=== PATIENT | female | born 1975 ===

== ENCOUNTER → 2021-07-24 | Outpatient (CLI) | payer OTHER | LOC: RAD 15:11 | PROVIDERS: ATTEND Chiropractor | DX: M51.34 Other intervertebral disc degeneration, thoracic region (principal); M25.78 Osteophyte, vertebrae; M48.061 Spinal stenosis, lumbar region without neurogenic claudication; M13.80 Other specified arthritis, unspecified site; M47.816 Spondylosis without myelopathy or radiculopathy, lumbar region ==